=== PATIENT | male | born 1950 | race Caucasian/White ===

== ENCOUNTER 2017-11-14 18:13 | Inpatient (IN) | payer OTHER ==
[~2017-11-14] VITALS: Ht 182.9 cm; Wt 105.7 kg
[2017-11-14] MEDS ORDERED: ASPIRIN 325 MG TABLET ONE (18:30)
[2017-11-14 18:55] LABS: BASOPHILS % (AUTO) 1.2 % (0.0-5.0); HEMATOCRIT 44.8 % (42-54); LYMPHOCYTES % (AUTO) 23.2 % (21.0-51.0); MEAN CORPUSCULAR HEMOGLOBIN 31.6 pg (27.0-33.0); MEAN CORPUSCULAR HGB CONC 33.9 g/dL (32.0-36.0); MEAN CORPUSCULAR VOLUME 93.2 fL (79-99); MONOCYTES % (AUTO) 7.6 % (3.0-13.0); PLATELET COUNT (AUTO) 123 K/uL (130-400); RED CELL DISTRIBUTION WIDTH 14.3 % (11.0-15.5)
[2017-11-14 19:12] LABS: PARTIAL THROMBOPLASTIN TIME 25.7 SEC (26.3-35.5); PROTHROMBIN TIME 10.5 SEC (9.6-11.6)
[2017-11-14 19:30] LABS: ALBUMIN 3.6 g/dL (3.5-5.0); BILIRUBIN,TOTAL 0.5 mg/dL (0.2-1.0); CREATINE KINASE MB 1.8 ng/mL (0.5-3.6); CREATININE 1.4 mg/dL (0.5-1.5); POTASSIUM 4.7 mmol/L (3.5-5.1); TOTAL PROTEIN, SERUM 7.2 g/dL (6.0-8.3)
[2017-11-14 19:44] LABS: B-TYPE NATRIURETIC PEPTIDE 156 pg/mL (0-100)
[2017-11-14] MEDS ORDERED: DEXTROSE 50%-WATER 50 ML DISP.SYRIN IV PRN (22:45)
[2017-11-14] MEDS ORDERED: GLUCAGON 1MG KIT 1 MG ML IM PRN (22:45)
[2017-11-15 05:02] LABS: HEMATOCRIT 44.6 % (42-54); MEAN CORPUSCULAR HEMOGLOBIN 31.5 pg (27.0-33.0); MEAN CORPUSCULAR HGB CONC 34.1 g/dL (32.0-36.0); MEAN CORPUSCULAR VOLUME 92.4 fL (79-99); PLATELET COUNT (AUTO) 110 K/uL (130-400); RED BLOOD CELL COUNT(AUTO) 4.83 MIL/uL (4.50-6.20); RED CELL DISTRIBUTION WIDTH 14.2 % (11.0-15.5); WHITE BLOOD COUNT (AUTO) 6.9 K/uL (4.8-10.8)
[2017-11-15 05:42] LABS: CREATININE 1.1 mg/dL (0.5-1.5); POTASSIUM 4.6 mmol/L (3.5-5.1)
[2017-11-15] MEDS ORDERED: INSULIN HUMULIN R 100 UNIT/ML 3ML ONE ×2 (08:28→12:34)
[2017-11-15] MEDS ORDERED: FAMOTIDINE 20MG TAB 20 MG TAB PO SCH (09:00)
[2017-11-15] MEDS: ENOXAPARIN SODIUM 40 MG/0.4 ML SYRINGE SQ SCH (09:29)
[2017-11-15] MEDS ORDERED: FAMOTIDINE 20MG TAB 20 MG TAB ONE (09:34)
[2017-11-15] MEDS ORDERED: ENOXAPARIN SODIUM 40 MG/0.4 ML SYRINGE SQ ONE (09:34)
[2017-11-15 09:52] LABS: TROPONIN I < 0.04 ng/mL (0.00-0.06)
[2017-11-15 09:58] LABS: CREATINE KINASE MB 1.3 ng/mL (0.5-3.6); CREATINE KINASE, TOTAL 79 U/L (21-232); MYOGLOBIN 50 ng/mL (10-92)
[2017-11-15] MEDS ORDERED: METOPROLOL TARTRATE 25 MG TAB ONE (15:07)
[2017-11-15] MEDS ORDERED: FUROSEMIDE 20 MG TABLET ONE (15:07)
[2017-11-15] MEDS ORDERED: ASPIRIN 325 MG TABLET ONE (15:07)
[2017-11-15 15:35] LABS: CREATINE KINASE MB 1.2 ng/mL (0.5-3.6); CREATINE KINASE, TOTAL 87 U/L (21-232); MYOGLOBIN 41 ng/mL (10-92); TROPONIN I < 0.04 ng/mL (0.00-0.06)
[2017-11-15] MEDS: INSULIN HUMULIN R 100 UNIT/ML 3ML SQ SCH ×3 (16:30→22:39)
[2017-11-15] MEDS: ATORVASTATIN CALCIUM 40 MG TABLET PO SCH (16:58)
[2017-11-15] MEDS: LOSARTAN 100 MG TABLET PO SCH (16:59)
[2017-11-15] MEDS: LISINOPRIL 40 MG TABLET PO SCH (17:00)
[2017-11-15] MEDS: ISOSORBIDE MONO 30MG TAB SR PO SCH (18:00)
[2017-11-15 18:12] VITALS: BP 151/83
[2017-11-15] MEDS ORDERED: ATOR40TA69 PO (18:37)
[2017-11-15] MEDS ORDERED: CLOP75TA32 PO (18:37)
[2017-11-15] MEDS ORDERED: DIPH25TA20 PO (18:37)
[2017-11-15] MEDS ORDERED: ASPI-1012 PO (18:37)
[2017-11-15] MEDS ORDERED: FURO20TA4 PO (18:37)
[2017-11-15] MEDS ORDERED: METO50TA18 PO (18:37)
[2017-11-15] MEDS ORDERED: INSU100C14 SQ (18:37)
[2017-11-15] MEDS ORDERED: INSLAN SQ (18:37)
[2017-11-15] MEDS ORDERED: CAND1TAB16 PO (18:37)
[2017-11-15] MEDS ORDERED: RAMI10CA23 PO (18:37)
[2017-11-15 19:45] VITALS: BP 142/78
[2017-11-15] MEDS: METOPROLOL TARTRATE 25 MG TAB PO SCH (21:07)
[2017-11-15 23:49] VITALS: BP 152/81
[2017-11-16 03:46] VITALS: BP 142/76
[2017-11-16 05:40] LABS: HEMATOCRIT 44.6 % (42-54); MEAN CORPUSCULAR HEMOGLOBIN 31.6 pg (27.0-33.0); MEAN CORPUSCULAR HGB CONC 34.4 g/dL (32.0-36.0); MEAN CORPUSCULAR VOLUME 91.9 fL (79-99); PLATELET COUNT (AUTO) 112 K/uL (130-400); RED BLOOD CELL COUNT(AUTO) 4.85 MIL/uL (4.50-6.20); RED CELL DISTRIBUTION WIDTH 13.8 % (11.0-15.5); WHITE BLOOD COUNT (AUTO) 7.7 K/uL (4.8-10.8)
[2017-11-16 05:45] LABS: CREATININE 1.3 mg/dL (0.5-1.5); MAGNESIUM 2.2 mg/dL (1.80-2.40); POTASSIUM 4.6 mmol/L (3.5-5.1)
[2017-11-16] MEDS: INSULIN HUMULIN R 100 UNIT/ML 3ML SQ SCH ×3 (06:31→13:06)
[2017-11-16 07:00] VITALS: BP 141/89
[2017-11-16] MEDS ORDERED: ISOS30TA6 PO (07:49)
[2017-11-16] MEDS ORDERED: FUROSEMIDE 20 MG TABLET PO SCH (09:00)
[2017-11-16] MEDS ORDERED: ISOSORBIDE MONO 30MG TAB SR PO SCH (09:00)
[2017-11-16] MEDS ORDERED: CLOPIDOGREL BISULFATE 75 MG TAB PO SCH (09:00)
[2017-11-16] MEDS ORDERED: POTASSIUM CHLORIDE 10 MEQ/TAB.SA PO SCH (09:00)
[2017-11-16] MEDS ORDERED: ASPIRIN 81MG TAB.CHEW PO SCH (09:00)
[2017-11-16] MEDS: LISINOPRIL 40 MG TABLET PO SCH (09:25)
[2017-11-16] MEDS: ATORVASTATIN CALCIUM 40 MG TABLET PO SCH (09:26)
[2017-11-16] MEDS: METOPROLOL TARTRATE 25 MG TAB PO SCH (09:27)
[2017-11-16] MEDS: LOSARTAN 100 MG TABLET PO SCH (09:27)
[2017-11-16] MEDS: ISOSORBIDE MONO 30MG TAB SR PO SCH (09:27)
[2017-11-16] MEDS: ENOXAPARIN SODIUM 40 MG/0.4 ML SYRINGE SQ SCH (09:30)
[2017-11-16 11:00] VITALS: BP 120/74
== END 2017-11-16 14:55 | disposition home or self-care (01) | DRG 303 ==
LOC: EDH 18:13 → EDHIP 19:59 → 2AH 11-15 17:52
PROVIDERS: ADMIT Internal Medicine Nephrology; ATTEND Internal Medicine Nephrology
DX: I25.119 Atherosclerotic heart disease of native coronary artery with unspecified angina pectoris (principal); E11.65 Type 2 diabetes mellitus with hyperglycemia; I11.9 Hypertensive heart disease without heart failure; E66.9 Obesity, unspecified; E78.5 Hyperlipidemia, unspecified; I25.10 Atherosclerotic heart disease of native coronary artery without angina pectoris; I44.0 Atrioventricular block, first degree; K21.9 Gastro-esophageal reflux disease without esophagitis; I25.2 Old myocardial infarction; Z79.4 Long term (current) use of insulin; Z68.31 Body mass index [BMI] 31.0-31.9, adult; Z95.5 Presence of coronary angioplasty implant and graft; Z95.1 Presence of aortocoronary bypass graft; Z87.891 Personal history of nicotine dependence; Z82.49 Family history of ischemic heart disease and other diseases of the circulatory system
CPT/HCPCS: 36415; 71045; 80048; 80053; 80061; 82550; 82553; 82948; 83036; 83735; 83874; 83880; 84484; 85025; 85027; 85610; 85730; 93005; J1650; J1815

== ENCOUNTER 2017-11-23 18:45 | Inpatient (IN) | payer OTHER ==
[~2017-11-23] VITALS: Ht 180.3 cm; Wt 105.2 kg
[~2017-11-23 18:45] MED LIST: ASPI-1012 PO; ATOR40TA69 PO; CAND1TAB16 PO; CLOP75TA32 PO; DIPH25TA20 PO; FURO20TA4 PO; INSLAN SQ; INSU100C14 SQ; ISOS30TA6 PO; METO50TA18 PO; RAMI10CA23 PO
[2017-11-23 19:15] LABS: BASOPHILS % (AUTO) 0.8 % (0.0-5.0); EOSINOPHILS % (AUTO) 2.5 % (0.0-8.0); HEMATOCRIT 43.7 % (42-54); LYMPHOCYTES % (AUTO) 23.2 % (21.0-51.0); MEAN CORPUSCULAR HEMOGLOBIN 32.5 pg (27.0-33.0); MEAN CORPUSCULAR HGB CONC 35.5 g/dL (32.0-36.0); MEAN CORPUSCULAR VOLUME 91.5 fL (79-99); MONOCYTES % (AUTO) 6.7 % (3.0-13.0); NEUTROPHILS % (AUTO) 66.8 % (40.0-77.0); PLATELET COUNT (AUTO) 102 K/uL (130-400); RED BLOOD CELL COUNT(AUTO) 4.77 MIL/uL (4.50-6.20); RED CELL DISTRIBUTION WIDTH 13.9 % (11.0-15.5)
[2017-11-23] MEDS ORDERED: ASPIRIN 325 MG TABLET ONE (19:27)
[2017-11-23 19:32] LABS: INR 0.95 (0.85-1.15); PARTIAL THROMBOPLASTIN TIME 25.8 SEC (26.3-35.5)
[2017-11-23] MEDS ORDERED: ENOXAPARIN SODIUM 100 MG/1 ML SQ ONE (19:36)
[2017-11-23] MEDS ORDERED: NITROGLYCERIN 50 MG/D5% WATER 1 BOT ONE (19:36)
[2017-11-23 19:38] LABS: CREATININE 1.3 mg/dL (0.5-1.5); POTASSIUM 4.6 mmol/L (3.5-5.1)
[2017-11-23 19:39] LABS: B-TYPE NATRIURETIC PEPTIDE 167 pg/mL (0-100)
[2017-11-23 19:52] LABS: ALBUMIN 3.8 g/dL (3.5-5.0); BILIRUBIN,TOTAL 0.5 mg/dL (0.2-1.0); CREATINE KINASE MB 1.9 ng/mL (0.5-3.6); TOTAL PROTEIN, SERUM 7.5 g/dL (6.0-8.3)
[2017-11-23] MEDS ORDERED: ONDANSETRON HCL MDV 20ML 2 MG/ML VIAL ONE (20:30)
[2017-11-23] MEDS ORDERED: MORPHINE SULFATE 4 MG/1ML SYG ONE (20:31)
[2017-11-24] VITALS (12 sets, daily range): BP systolic 93–161; BP diastolic 48–88
[2017-11-24] MEDS ORDERED: NITROGLYCERIN 1GM/1 INCH PACKET TD ONE (00:12)
[2017-11-24] MEDS ORDERED: LIDOCAINE HCL-MPF 1% 2ML VIAL IVP PRN (01:45)
[2017-11-24] MEDS ORDERED: POTASSIUM CHLORIDE 20 MEQ ERTAB PO PRN (01:45)
[2017-11-24] MEDS ORDERED: MORPHINE SULFATE 2 MG/ML 1ML SYG IVP PRN (01:45)
[2017-11-24] MEDS ORDERED: GLUCAGON 1MG KIT 1 MG ML IM PRN (01:45)
[2017-11-24] MEDS ORDERED: POTASSIUM CHLORIDE 20MEQ/100ML 100 ML IV PRN (01:45)
[2017-11-24] MEDS ORDERED: DEXTROSE 50%-WATER 50 ML DISP.SYRIN IV PRN (01:45)
[2017-11-24] MEDS ORDERED: POTASSIUM CHLORIDE 10% ELIXIR 20 MEQ/15 ML UDCUP PO PRN (01:45)
[2017-11-24] MEDS ORDERED: LACTULOSE 20 GM/30 ML UDCUP PO PRN ×2 (01:45→09:45)
[2017-11-24] MEDS ORDERED: ACETAMINOPHEN 325 MG TAB PO PRN ×3 (01:45→09:45)
[2017-11-24] MEDS ORDERED: IPRATROPIUM/ALBUTEROL SULFATE 3 ML SOLUTION IH PRN ×2 (01:45→09:46)
[2017-11-24 03:37] LABS: CREATINE KINASE MB 8.9 ng/mL (0.5-3.6)
[2017-11-24 03:44] LABS: TROPONIN I 2.33 ng/mL (0.00-0.06)
[2017-11-24 05:49] LABS: HEMATOCRIT 44.9 % (42-54); MEAN CORPUSCULAR HEMOGLOBIN 31.6 pg (27.0-33.0); MEAN CORPUSCULAR HGB CONC 34.4 g/dL (32.0-36.0); MEAN CORPUSCULAR VOLUME 92.1 fL (79-99); PLATELET COUNT (AUTO) 102 K/uL (130-400); RED BLOOD CELL COUNT(AUTO) 4.88 MIL/uL (4.50-6.20); RED CELL DISTRIBUTION WIDTH 13.8 % (11.0-15.5); WHITE BLOOD COUNT (AUTO) 6.9 K/uL (4.8-10.8)
[2017-11-24 06:02] LABS: CREATININE 1.1 mg/dL (0.5-1.5); POTASSIUM 4.6 mmol/L (3.5-5.1)
[2017-11-24] MEDS: INSULIN HUMULIN R 100 UNIT/ML 3ML SQ SCH ×4 (07:30→21:33)
[2017-11-24] MEDS: FAMOTIDINE 20MG TAB 20 MG TAB PO SCH ×2 (09:00→21:30)
[2017-11-24] MEDS ORDERED: ASPIRIN 325 MG TABLET PO SCH (09:00)
[2017-11-24] MEDS ORDERED: HEPARIN SODIUM 1000UNIT/ML 10ML VIAL ONE (09:32)
[2017-11-24] MEDS ORDERED: ISOVUE-370 50ML VIAL IV ONE (09:32)
[2017-11-24] MEDS ORDERED: LIDOCAINE HCL 2% 20ML ONE (09:32)
[2017-11-24] MEDS ORDERED: NITROGLYCERIN 5 MG/ML 10 ML VIAL IV ONE (09:32)
[2017-11-24] MEDS ORDERED: IOPAMIDOL-370 100 ML VIAL IV ONE ×2 (09:32→11:07)
[2017-11-24] MEDS ORDERED: GUAIFENESIN-DM 200/20 MG 10 ML PO PRN (09:45)
[2017-11-24] MEDS ORDERED: ZOLPIDEM TARTRATE 5 MG TAB PO PRN (09:45)
[2017-11-24] MEDS ORDERED: HYDRALAZINE HCL 20 MG/ML VIAL IV PRN (09:45)
[2017-11-24] MEDS ORDERED: NITROGLYCERIN 0.4 MG SL TAB SL PRN (09:45)
[2017-11-24] MEDS ORDERED: ONDANSETRON HCL 4 MG/2 ML VIAL IV PRN (09:45)
[2017-11-24] MEDS ORDERED: MORPHINE SULFATE 2 MG/ML 1ML SYG IV PRN (09:45)
[2017-11-24] MEDS ORDERED: ACETAMINOPHEN-CODEINE 300/30MG TAB PO PRN ×4 (09:45→12:15)
[2017-11-24] MEDS ORDERED: MORPHINE SULFATE 4 MG/1ML SYG IVP PRN (09:48)
[2017-11-24] MEDS ORDERED: ONDANSETRON HCL MDV 20ML 2 MG/ML VIAL IV PRN (09:51)
[2017-11-24] MEDS ORDERED: MIDAZOLAM HCL 1 MG/ML 2ML VIAL ONE (10:09)
[2017-11-24] MEDS ORDERED: EPTIFIBATIDE 2 MG/ML 10 ML VIAL IVP ONE (10:53)
[2017-11-24] MEDS ORDERED: EPTIFIBATIDE 75MG/100ML BOTTLE 100 ML IV ONE (10:54)
[2017-11-24] MEDS ORDERED: CLOPIDOGREL BISULFATE 75 MG TAB ONE (11:06)
[2017-11-24] MEDS ORDERED: ASPIRIN 325MG EC TAB 325 MG TABLET.DR PO ONE (11:06)
[2017-11-24 11:38] LABS: TROPONIN I 2.84 ng/mL (0.00-0.06)
[2017-11-24] MEDS: MORPHINE SULFATE 4 MG/1ML SYG IVP SCH (12:15)
[2017-11-24] MEDS ORDERED: EPTIFIBATIDE 75MG/100ML BOTTLE 100 ML IV SCH (12:30)
[2017-11-24] MEDS ORDERED: ONDANSETRON HCL MDV 20ML 2 MG/ML VIAL IVP PRN (12:30)
[2017-11-24] MEDS: MORPHINE SULFATE 4 MG/1ML SYG IV PRN ×2 (15:04→19:04)
[2017-11-24] MEDS ORDERED: ATROPINE SULFATE 0.1 MG/ML 10 ML SYG IVP ONE (15:16)
[2017-11-24 18:46] LABS: TROPONIN I 2.33 ng/mL (0.00-0.06)
[2017-11-24] MEDS ORDERED: FAMOTIDINE 20MG TAB 20 MG TAB PO SCH (21:00)
[2017-11-24] MEDS ORDERED: INSULIN GLARGINE 100 UNITS/ML 10 ML VIAL SQ SCH (21:00)
[2017-11-24] MEDS: METOPROLOL TARTRATE 25 MG TAB PO SCH (21:30)
[2017-11-25] VITALS (12 sets, daily range): BP systolic 88–164; BP diastolic 44–81
[2017-11-25] MEDS: INSULIN GLARGINE 100 UNITS/ML 10 ML VIAL SQ SCH ×2 (00:51→20:50)
[2017-11-25 04:06] LABS: HEMATOCRIT 41.8 % (42-54); MEAN CORPUSCULAR HGB CONC 34.9 g/dL (32.0-36.0); MEAN CORPUSCULAR VOLUME 91.6 fL (79-99); PLATELET COUNT (AUTO) 111 K/uL (130-400); RED BLOOD CELL COUNT(AUTO) 4.56 MIL/uL (4.50-6.20); RED CELL DISTRIBUTION WIDTH 13.9 % (11.0-15.5); WHITE BLOOD COUNT (AUTO) 7.7 K/uL (4.8-10.8)
[2017-11-25 04:34] LABS: CREATINE KINASE MB 3.2 ng/mL (0.5-3.6); CREATININE 1.2 mg/dL (0.5-1.5); POTASSIUM 4.1 mmol/L (3.5-5.1)
[2017-11-25 04:45] LABS: TROPONIN I 1.88 ng/mL (0.00-0.06)
[2017-11-25] MEDS: INSULIN LISPRO 100 UNIT/ML 3ML SQ SCH (07:02)
[2017-11-25] MEDS: METOPROLOL TARTRATE 25 MG TAB PO SCH ×2 (11:16→20:49)
[2017-11-25] MEDS: PANTOPRAZOLE SODIUM 40 MG TABLET.DR PO SCH (11:16)
[2017-11-25] MEDS: ASPIRIN 81MG TAB.CHEW PO SCH (11:16)
[2017-11-25] MEDS: CLOPIDOGREL BISULFATE 75 MG TAB PO SCH (11:16)
[2017-11-25] MEDS: FAMOTIDINE 20MG TAB 20 MG TAB PO SCH ×2 (11:16→20:49)
[2017-11-25] MEDS: MORPHINE SULFATE 4 MG/1ML SYG IVP SCH (12:15)
[2017-11-26 03:47] VITALS: BP 118/62
[2017-11-26 05:13] LABS: HEMATOCRIT 40.2 % (42-54); MEAN CORPUSCULAR HGB CONC 36.1 g/dL (32.0-36.0); MEAN CORPUSCULAR VOLUME 91.3 fL (79-99); PLATELET COUNT (AUTO) 99 K/uL (130-400); RED CELL DISTRIBUTION WIDTH 13.9 % (11.0-15.5); WHITE BLOOD COUNT (AUTO) 6.2 K/uL (4.8-10.8)
[2017-11-26 05:31] LABS: CREATININE 1.2 mg/dL (0.5-1.5)
[2017-11-26 08:00] VITALS: BP 129/72
[2017-11-26] MEDS: FAMOTIDINE 20MG TAB 20 MG TAB PO SCH (10:46)
[2017-11-26] MEDS: ASPIRIN 81MG TAB.CHEW PO SCH (10:46)
[2017-11-26] MEDS: METOPROLOL TARTRATE 25 MG TAB PO SCH (10:46)
[2017-11-26] MEDS: CLOPIDOGREL BISULFATE 75 MG TAB PO SCH (10:46)
[2017-11-26] MEDS: PANTOPRAZOLE SODIUM 40 MG TABLET.DR PO SCH (10:46)
[2017-11-26] MEDS: INSULIN LISPRO 100 UNIT/ML 3ML SQ SCH (10:48)
[2017-11-26 11:00] VITALS: BP 134/74
== END 2017-11-26 14:20 | disposition home or self-care (01) | DRG 248 ==
LOC: EDH 18:45 → EDHIP 22:45 → OBSVTOIN 22:45 → 2BH 11-24 12:28 → 2DH 11-25 07:32
PROVIDERS: ADMIT Family Medicine; ATTEND Family Medicine
PROC: 02703ZZ Dilation of Coronary Artery, One Artery, Percutaneous Approach (ICD-10-PCS; principal; 2017-11-24)
PROC: 4A023N7 Measurement of Cardiac Sampling and Pressure, Left Heart, Percutaneous Approach (ICD-10-PCS; 2017-11-24)
PROC: B2111ZZ Fluoroscopy of Multiple Coronary Arteries using Low Osmolar Contrast (ICD-10-PCS; 2017-11-24)
PROC: B2131ZZ Fluoroscopy of Multiple Coronary Artery Bypass Grafts using Low Osmolar Contrast (ICD-10-PCS; 2017-11-24)
PROC: 02703DZ Dilation of Coronary Artery, One Artery with Intraluminal Device, Percutaneous Approach (ICD-10-PCS; 2017-11-24)
DX: T82.855A Stenosis of coronary artery stent, initial encounter (principal); I21.4 Non-ST elevation (NSTEMI) myocardial infarction; I25.810 Atherosclerosis of coronary artery bypass graft(s) without angina pectoris; I25.110 Atherosclerotic heart disease of native coronary artery with unstable angina pectoris; E11.9 Type 2 diabetes mellitus without complications; E78.5 Hyperlipidemia, unspecified; I10 Essential (primary) hypertension; Y83.1 Surgical operation with implant of artificial internal device as the cause of abnormal reaction of the patient, or of later complication, without mention of misadventure at the time of the procedure; Z79.4 Long term (current) use of insulin; Z87.891 Personal history of nicotine dependence; Z82.49 Family history of ischemic heart disease and other diseases of the circulatory system
CPT/HCPCS: 36415; 71045; 80048; 80053; 80061; 82550; 82553; 82947; 82948; 83874; 83880; 84484; 85025; 85027; 85347; 85610; 85730; 93005; 93306; 93455; 94640; 94664; 99152; 99153; 99291; C1725; C1769; C1887; C1894; C9604; J0461; J1327; J1644; J1650; J1815; J2250; J2270; J3490; Q9967